=== PATIENT | male | born 1980 | race Caucasian/White ===

== ENCOUNTER 2024-09-25 13:15 | Emergency (ER) | payer OTHER, SELFPAY ==
[2024-09-25 13:15] VITALS: BP 119/76
--- NOTE | 2024-09-25 17:45 | DOWNTIME ---
There was a [employer] Client Health Evaluator Downtime on 09/25/2024 from 1230 to 09/25/2024 at 1550. Downtime documentation of patient's care, including medication administrations, has been reconciled in the electronic record per guidelines. Refer to the
patient's paper chart under the miscellaneous tab to see printed paper medication records and downtime forms.
[2024-09-25 18:03] LABS: % Basophils 0.4 % (0-2); % Eosinophils 2.4 % (0-6); % Immature Granulocytes 0.2 % (0-0.5); % Lymphocytes 27.5 % (20.5-51.1); % Monocytes 8.9 % (1.7-9.3); % Neutrophils 60.6 % (42.2-75.2); Absolute Eosinophils 0.1 10^3/uL (0-0.7); Absolute Lymphocytes 1.4 10^3/uL (1.2-3.4); Absolute Monocytes 0.4 10^3/uL (0.1-0.6); Blood Urea Nitrogen 21 mg/dl (9-20); Calcium 9.2 mg/dl (8.4-10.2); Carbon Dioxide 28 mmol/L (22-30); Chloride 105 mmol/L (98-107); Glucose 75 mg/dl (70-99); Hematocrit 43.9 % (39.0-52.0); Hemoglobin 15.6 g/dL (13.0-18.0); Mean Corp Hgb Conc. 35.5 g/dL (33.0-37.0); Mean Corpuscular Hgb 31.7 pg (27.0-31.0); Mean Corpuscular Volume 89.2 fL (80.0-94.0); Mean Platelet Volume 11.6 fL (7.4-10.4); Nucleated Red Blood Cells % 0 % (-); Platelet Count 225 10^3/uL (130-400); Potassium 4.5 mmol/L (3.5-5.1); Red Blood Cell Count 4.92 10^6/uL (4.70-6.10); Red Cell Dist. Width 11.7 % (11.5-14.5); Sodium 141 mmol/L (135-145); eGFR > 60.00
[2024-09-25 18:15] LABS: Troponin I < 0.012 ng/ml
[2024-09-25 18:25] VITALS: BP 116/75
[2024-09-25 19:00] VITALS: BP 119/73
--- NOTE | 2024-09-25 19:00 | ED.GENMED ---
History of Present Illness
General
Chief Complaint: Chest Pain
Source: patient
Time Seen by Provider: 09/25/24 17:52
History of Present Illness
History of Present Illness:
44-year-old male with no significant past medical history presenting to the emergency department for evaluation after he was at the local bookstore when he developed a sudden onset of pain within the sternal area of his chest described to be as if
someone punched him in the chest with symptoms lasting about 30 minutes, no other associated symptoms and shortness of breath, palpitation, nausea, diaphoresis, lower extremity edema, coughing. Symptoms resolved on their own. Patient notes that he
had similar episode of pain about 1 month ago, that pain was more of a dull ache and resolved on its own, made an appointment to follow-up with dtp operator which is scheduled for next week. Patient denies any recent illnesses, no recent travel, no
other risk factors for DVT/PE. Family history was noted for mother having a history of a aortic aneurysm and patient reports he believes he was screened for an aneurysm in 2017 and believes the studies were unremarkable but overall is not sure
Past History
Past History
ED Past Medical History: None
ED Past Surgical History: None
Social History
Tobacco: Non-smoker
Alcohol: Occasional
Drug: None
Personal:
Living: with family
Employment: Employed
Review of Systems
Review of Systems
All Other Systems: ROS reviewed and negative except as documented in HPI and ROS
Phy Exam
Physical Exam
Physical Exam:
GENERAL: Alert , in no apparent distress
EYE: clear conjunctiva b/l
HEAD: NCAT
ENT: o/p clr, mmm.
CARDIAC: Bradycardic rate, regular rhythm
LUNGS: Clear breath sounds bilaterally, no acute respiratory distress, no wheezes/rales/rhonchi
ABDOMEN: Soft, without focal tenderness, no r/g, no cvat
NEUROLOGICAL: Alert and oriented
SKIN: Warm and dry, skin intact.
MUSCULOSKELETAL: No edema, well perfused.
PSYCH: Normal and appropriate interaction.
Scores
Heart Failure Risk
Heart Failure Risk Score: Not Applicable
Heart Score for Chest Pain Patients
STEMI patient?: No
History: Moderately Suspicious
ECG: Normal
Age: </= 45 years
Risk Factors: No Risk Factors
Troponin: </= Normal Limit
Heart Score for Chest Pain Patients: 1
Heart Score Risk: 2.5% MACE over next 6 weeks
Withdrawal Assessment of Alcohol
Withdrawal Assessment Completed?: Not applicable
Course
Orders/Labs/Results
Orders:
Orders
09/25/24
Electrocardiogram (*1) Stat
Reason for Study: Chest Pain
Comment: DONE
09/25/24 17:05
Basic Metabolic Panel Routine
Complete Blood Count/With Diff Routine
Troponin I Routine
09/25/24 17:53
CT Chest/abd/pelvis Angio W/wo Urgent
Comment:
Reason For Exam: chest pain, mother hx AAA
Abnormal Lab Results
09/25/24
17:05
MCH 31.7 H pg
(27.0-31.0)
MPV 11.6 H fL
(7.4-10.4)
BUN 21 H mg/dl
(9-20)
09/25/24 17:05
09/25/24 17:05
Vital Signs
Initial and Last Documented VS:
Initial Vital Signs
Pulse Resp BP Pulse Ox
56 18 119/76 98
09/25/24 13:15 09/25/24 13:15 09/25/24 13:15 09/25/24 13:15
Last Documented Vital Signs
Pulse Resp BP Pulse Ox
52 12 119/73 98
09/25/24 19:00 09/25/24 19:00 09/25/24 19:00 09/25/24 13:15
MDM/Problems Addressed
Differential Diagnosis Includes:
Atypical ACS presentation, aortic aneurysm, aortic dissection, musculoskeletal chest wall pain, costochondritis, PE
MDM/Problems Addressed:
44-year-old male presenting to the ER for evaluation of sudden onset of chest discomfort in the sternum started around 1230 this afternoon, resolved spontaneously. History of similar about 1 month ago, has an appointment scheduled with cardiology
this coming week. Currently symptom-free. Mother with history of known AAA. EKG does show an incomplete right bundle. Labs initiated on arrival showing negative troponin and otherwise unremarkable blood work. Given his mother's history of AAA
will obtain CTA of the chest abdomen and pelvis. Patient remains symptom-free at this time.
*Radiology
Radiology exam reviewed: radiology read reviewed
*Pulse Oximetry
Patient hypoxic: no
*EKG
Heart Rate: 44
Rate: bradycardiac
Rhythm: sinus
Interval: first degree heart block
Ischemia: other (Incomplete Right bundle)
*Patient Access Director Interpretation
Rate: bradycardiac
Rhythm: sinus
*Critical Care Note
Total Time (30-74mins, 75-104mins- exclusive of procedures): Not Applicable
Patient Management
Escalation/DeEscalation of care consider admission/obs:
Patient CTA is negative for any aneurysm, dissection or intramural hematoma of the thoracic or abdominal aorta. There was however noted mild cardiomegaly with apparent dilatation of the right ventricle. Recommended to have close follow-up with
echocardiogram. Patient does have an appointment scheduled for cardiology next week. He was provided with a printout of these reports as well as his EKG and labs. Patient remains chest pain-free. Stable for discharge home and aware of return
precautions to the emergency department.
ED Attending Note
-
Portions of this chart may have been created with voice recognition software.� Occasional wrong word or��sound alike� substitutions may have occurred due to the inherent limitations of voice recognition software.
Discharge Plan
Departure
Patient Disposition: Home (Routine Discharge)
Date of Disposition: 09/25/24
Time of Disposition: 20:19
Patient with high blood pressure during this ER visit?: No
Discharge Problem:
Chest pain
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
Referrals:
Alis Sierra DO [Family Provider, Family Practice]
Interventions
Interventions:
*Nursing Disposition Last Done: 09/25/24 21:01
ED- Cardiac Assessment Last Done: 09/25/24 18:24
Discharge Date and Time
Discharge Date/Time: 09/25/24 21:02
Print Language: MAORI
== END 2024-09-25 21:02 | disposition home or self-care (01) ==
LOC: EMR 13:15
PROVIDERS: EMERGENCY PHYSICIAN Student in an Organized Health Care Education/Training Program; FAMILY PHYSICIAN Family Medicine
DX: R07.89 Other chest pain (principal); I45.10 Unspecified right bundle-branch block; I51.7 Cardiomegaly
CPT/HCPCS: 99284; 71275; 74174; 80048; 84484; 85025; 93005; Q9967